=== PATIENT | female | born 1960 | race African-American/Black ===

== ENCOUNTER 2018-12-20 16:36 | Inpatient (IN) | payer OTHER ==
[~2018-12-20] VITALS: Ht 172.7 cm; Wt 82.1 kg
[2018-12-20 16:36] VITALS: BP 139/87
[2018-12-20] MEDS ORDERED: ACCUNEB SO1.25 MG/1 INH (16:41)
[2018-12-20 17:01] LABS: HEMATOCRIT 40.8 % (37.0-47.0); HEMOGLOBIN 13.5 gm/dL (12.0-15.0); MCH 28.4 pg (26.0-34.0); MCHC 33.2 g/dL (28.0-37.0); MCV 85.8 fL (80.0-100.0); PLATELET COUNT 262 thou/uL (150-400); RBC 4.76 mil/uL (4.20-5.00); RDW 13.7 % (10.5-14.5); WBC 12.5 thou/uL (4.0-11.0)
[2018-12-20 17:32] LABS: CALCIUM 8.5 mg/dL (8.5-10.1); CREATININE 0.6 mg/dL (0.6-1.0); POTASSIUM 3.5 mmol/L (3.5-5.1)
[2018-12-20 17:33] LABS: ABSOLUTE NEUTROPHILS 8.6 thou/uL (1.4-8.2)
[2018-12-20 17:36] LABS: ALBUMIN 4.1 g/dL (3.4-5.0); TOTAL BILIRUBIN 0.5 mg/dL (<0.1-1.0); TOTAL PROTEIN 7.8 g/dL (6.4-8.2)
[2018-12-20 18:36] VITALS: BP 150/74
[2018-12-20 18:44] VITALS: BP 150/74
[2018-12-20 19:32] VITALS: BP 159/89
[2018-12-20] MEDS ORDERED: NORVASC5 MG PO (19:55)
[2018-12-20] MEDS ORDERED: MOBIC15 MG PO (19:56)
[2018-12-20] MEDS ORDERED: ZOLOFT50 MG PO (19:57)
[2018-12-20] MEDS ORDERED: OMEPRAZOLE40 MG PO (19:57)
[2018-12-20] MEDS ORDERED: ZOCOR20 MG PO (19:58)
[2018-12-20] MEDS ORDERED: PROAIR HFA8.5 GM (19:59)
[2018-12-20] MEDS ORDERED: KLOR-CON 1010 MEQ PO (19:59)
[2018-12-21] VITALS (7 sets, daily range): BP systolic 148–174; BP diastolic 67–94
--- NOTE | 2018-12-21 08:05 | NUR ---
LOTTIE WAS ADMITTED WITH SOB, RESP FAILURE W/HYPOXIA, AND ASHTMA. BREATHEING TREATMENT AND STEROIDS EASED PT'S BREATHING AND PT IS STABLE ON RA UPON ASSESSMENT. PATIENT IS ALERT AND ORIENTED X4 AND WAS ORIENTED TO THE ROOM. THE NIGHT PROGRESSED, PT'S COUGHING EFFORT IMPROVED. SHE WAS ABLE TO SLEEP PART OF THE NIGHT. PATIENT'S GAIT WAS STEADY GOING TO THE BATHROOM. PATIENT IS PROGRESSING TOWARDS DISCHARGE GOALS.
--- NOTE | 2018-12-21 10:20 | NUR ---
kameron consulted for dcp for limited support system. kameron visited with pt at bedside. she is a & o x 3, and able to make her needs know. intro to cm, and dcp " i was homeless year ago from looses my job i lost everything. work 1/2 and no benifits. have medicaid. going to get knee replacements. use cane. live in ground floor apartment in [facility] and they help with my medication. i have car but need transportation home, that's ok. all family is out of state. no support here. have aunt but her health is not good and i do not want to bother her. use [facility] [address] in [facility] for medication. only use inhaler at home."/kadie. encouraged pt to call on friends or outside support if needed " ok thank you"/zackary. will cont following as needed for dc needs. dcp home
--- NOTE | 2018-12-21 15:03 | NUR ---
ASSUMED PATIENT CARE AT 0715. COMPLAINTS OF KNEE PAIN. NORCO FOR PAIN. PATIENT STAND BY ASSIST AND STEADY. SOA WITH AMBULATION. NONPRODUCTIVE COUGH. NEEDING A SPUTUM SAMPLE. TELE AND FLUIDS DC'D. TRANSFERRING DOWN TO [facility]. PATIENT AGREEABLE. REPORT GIVEN TO ALLIE.
--- NOTE | 2018-12-21 16:48 | NUR ---
CM CALLED AND GOT MEDICAID PRE AUTH FOR A NEBULIZER. CM FAXED ORDER TO [facility]. CM NOTIFIED [facility] LIAISON ON ORDER AND PROBABLE DC TOMORROW.
--- NOTE | 2018-12-21 18:43 | NUR ---
PATIENT TRANSFERRED FROM 451 TO SICU 224 AT 1730, A&OX4, DENIES PAIN AND DISCOMFORT, RA, RIGHT FOREARM IV INTACT, STANDBY ASSIST WITH TRANSFERS AND AMBULATION, PERSONAL BELONGINGS AND CALL LIGHT IN REACH, WILL CONTINUE TO MONITOR
--- NOTE | 2018-12-22 04:39 | NUR ---
Asumed Pt. care at 1900. Pt. A&Ox4; swallows meds whole w/o difficulty. Remains cont. B&B; ambulates independently w/ steady gait. remains on lovenox therapy; no s/s of bleeding noted. Remains on IVABT/cough; no adverse reactions noted. L wrist SL noted; infused ABT/flushed w/o difficulty. SCDs intact to BLEs. Pt. has no c/o pain or discomfort. No s/s of acute distress noted. Pt. asleep in bed w/ call light/desired belongings within reach. PO fluids encouraged. Will continue to monitor.
[2018-12-22 07:17] LABS: HEMOGLOBIN 12.9 gm/dL (12.0-15.0); MCH 28.6 pg (26.0-34.0); MCV 86.7 fL (80.0-100.0); RBC 4.5 mil/uL (4.20-5.00); RDW 14.2 % (10.5-14.5); WBC 17.3 thou/uL (4.0-11.0)
--- NOTE | 2018-12-22 07:43 | NUR ---
ASSUMED PATIENT AND CARES AT 0715, PATIENT WOKE LYING BACK IN BED, TALKATIVE, A&OX4, NON-PRODUCTIVE COUGH NOTED, C/O PAIN 5/10 TO KNEES, RIGHT FOREARM SALINE LOCK INTACT, CONTINUES IV ABT THERAPY, REPORTED INDEPENDENT WITH TRANSFER AND AMBULATION SINCE LAST NIGHT, PERSONAL BELONGINGS AND CALL LIGHT IN REACH, WILL CONTINUE TO MONITOR
[2018-12-22 09:25] VITALS: BP 144/81
[2018-12-22] MEDS ORDERED: TUSSIONEX PENN115 ML PO (10:54)
[2018-12-22] MEDS ORDERED: PREDNISONE 10 M10 MG PO (10:54)
[2018-12-22] MEDS ORDERED: AZITHROMYCIN 2250 MG PO (10:54)
[2018-12-22 14:10] VITALS: BP 144/81
--- NOTE | 2018-12-22 14:12 | NUR ---
DISCHARGE NOTE: SUSAN reviewed chart and spoke with nursing and attending physician. Pt transferred to [facility] from 4th floor and is medically stable for discharge home today. SUSAN notified [facility] liaison of pt's discharge. Nebulizer will be delivered to pt's home. SUSAN met with pt at bedside to discuss discharge plan. Pt is agreeable with plan, who states that she will need transportation home. Pt has [place]-Medicaid and will be able to use [employer] for transportation home. Contact info for [facility] placed in pt's discharge summary. No additional SW needs identified at this time, but is available to assist should needs arise.
--- NOTE | 2018-12-22 14:28 | NUR ---
DISCHARGE ORDERS RECEIVED. PATIENT DISCHARGING TO HOME. [facility] TO PROVIDE TRANSPORTATION. PER DISPATCH [facility] HAS A THREE HOUR WINDOW [phone] [employer] SUPER[employer] TIME. TRIP NUMBER [id number]. [facility] CONTACT NUMBER . UNIT SW AWARE.
[2018-12-22] MEDS ORDERED: IPRAT-ALBUT 0.5-3 ML INH (14:51)
--- NOTE | 2018-12-22 16:07 | NUR ---
PATIENT DISCHARGED HOME TO SELF CARE, PATIENT DRESSED SELF AND PACKED PERSONAL BELONGINGS, NURSE AND PATIENT DISCUSSED DISCHARGE INSTRUCTIONS AND MEDICATIONS, RIGHT FOREARM SALINE LOCK REMOVED AND REPLACED WITH GAUZE AND TAPE, TRANSPORTATION SET UP PER CASE MANAGEMENT
--- NOTE | 2018-12-22 18:02 | NUR ---
I AGREE WITH NURSING ASSESSMENT DONE BY ADILENE/RIMA.
== END 2018-12-22 18:05 | disposition home or self-care (01) | DRG 189 ==
LOC: ER 16:36 → SICU 18:14 → 4W 18:14 → EROBS 18:14 → 4W 19:00 → SICU 12-21 16:04
PROVIDERS: Physician Assistant; ADMIT Hospitalist
DX: J96.21 Acute and chronic respiratory failure with hypoxia (principal); J45.901 Unspecified asthma with (acute) exacerbation; I10 Essential (primary) hypertension; K21.9 Gastro-esophageal reflux disease without esophagitis; M17.0 Bilateral primary osteoarthritis of knee; F17.210 Nicotine dependence, cigarettes, uncomplicated; Z82.49 Family history of ischemic heart disease and other diseases of the circulatory system; Z71.6 Tobacco abuse counseling; Z79.899 Other long term (current) drug therapy
CPT/HCPCS: 10045; 15002

== ENCOUNTER 2019-06-18 11:09 | Emergency (ER) | payer OTHER ==
[~2019-06-18] VITALS: Ht 172.7 cm; Wt 89.8 kg
[~2019-06-18 11:09] MED LIST: ACCUNEB SO1.25 MG/1 INH; AZITHROMYCIN 2250 MG PO; IPRAT-ALBUT 0.5-3 ML INH; KLOR-CON 1010 MEQ PO; MOBIC15 MG PO; NORVASC5 MG PO; OMEPRAZOLE40 MG PO; PREDNISONE 10 M10 MG PO; PROAIR HFA8.5 GM; TUSSIONEX PENN115 ML PO; ZOCOR20 MG PO; ZOLOFT50 MG PO
[2019-06-18] MEDS ORDERED: SINGULAIR 10 MG10 M1 PO (11:21)
[2019-06-18 11:56] LABS: BASOPHILS 0.7 % (0.0-2.0); EOSINOPHILS 0.6 % (0.0-3.0); HEMATOCRIT 41.5 % (37.0-47.0); HEMOGLOBIN 13.5 gm/dL (12.0-15.0); LYMPHOCYTES 26.3 % (24.0-44.0); MCH 27.9 pg (26.0-34.0); MCHC 32.5 g/dL (28.0-37.0); MCV 85.9 fL (80.0-100.0); MONOCYTES 7.7 % (1.0-8.0); PLATELET COUNT 270 thou/uL (150-400); POLYS 64.7 % (36.0-66.0); RBC 4.83 mil/uL (4.20-5.00); RDW 15.1 % (10.5-14.5); WBC 7.8 thou/uL (4.0-11.0)
[2019-06-18 11:59] LABS: ANION GAP 15 mmol/L (7-16); BUN 14 mg/dL (7-18); CALCIUM 8.4 mg/dL (8.5-10.1); CHLORIDE 103 mmol/L (98-107); CO2 23 mmol/L (21-32); CREATININE 0.6 mg/dL (0.6-1.0); GLUCOSE 101 mg/dL (74-106); POTASSIUM 3.2 mmol/L (3.5-5.1); SODIUM 141 mmol/L (136-145)
[2019-06-18 12:07] LABS: TROPONIN-I <0.06 ng/mL (<0.06)
[2019-06-18 13:00] VITALS: BP 163/96
[2019-06-18] MEDS ORDERED: PREDNISONE 20 M20 MG PO (13:01)
--- NOTE | 2019-06-19 14:06 | EKG ---
[address] [place] [address] ELECTROCARDIOGRAM REPORT Name: ARELI KELLEY [facility] [id number] Admission: 06/18/19 Attend Phys: Discharge: 06/18/19 Date of : 60 Report #: [id number] THIS REPORT FOR: //name// [facility] ED Test Date: 2019-06-18 Test Time: 11:17:06 Pat Name: ARELI KELLEY Department: Room: Gender: F Resource Development Director: CARMELLA : 1960 Requested By: Lazaro Georges Order Number: [id number] MD: Jose G Churchill Measurements Intervals [place] Rate: 98 P: 51 [place]: 146 QRS: -46 QRSD: 106 T: 34 QT: 361 QTc: 461 Interpretive Statements Sinus rhythm Left axis deviation Low voltage, precordial leads RSR' in V1 or V2, probably normal variant Borderline T abnormalities, anterior leads No previous ECG available for comparison Electronically Signed On 06-19-2019 14:06:10 CDT by Jose G Churchill [email or web address] <ELECTRONICALLY SIGNED> By: Jose G Churchill MD 06/19/19 1402 1117 1117 Jose G Churchill MD /EPI
== END 2019-06-18 13:00 | disposition home or self-care (01) ==
LOC: ER 11:09
PROVIDERS: Emergency Medicine
DX: J06.9 Acute upper respiratory infection, unspecified (principal); F17.210 Nicotine dependence, cigarettes, uncomplicated; I10 Essential (primary) hypertension; J45.909 Unspecified asthma, uncomplicated; E78.00 Pure hypercholesterolemia, unspecified; K21.9 Gastro-esophageal reflux disease without esophagitis; F41.9 Anxiety disorder, unspecified

== ENCOUNTER 2020-03-20 17:32 | Emergency (ER) | payer OTHER ==
[~2020-03-20] VITALS: Ht 172.7 cm; Wt 83.9 kg
--- NOTE | ~2020-03-20 | EMS ---
[facility] [address] [place] [address] EMS Patient Care Report Name: ARELI EKLLEY Room #: REG VASILIY Hannah#: [id number] Admission: 03/20/20 Attend Phys: Discharge: Date of : 60 Report #: [id number] THIS REPORT FOR: //name// Report Transmitted: 03/20/2020 18:53 EMS Care Summary [place], [place]/[facility] Incident [id number] @ 03/20/2020 17:02 Incident Location [address] [place] [id number] Patient ARELI KELLEY Female, 59 Years 1960 Patient Address [address] [place] [address] Patient History Asthma,Hypertension (HTN), Patient Allergies No known allergies, Patient Medications Proair, Chief Complaint asthma exacerbation Disposition Transported No Lights/[place] Dispatch Reason Breathing Problem Transported To [facility] Narrative Initially dispatched with [facility] for breathing problems. Upon EMS arrival patient was found sitting in her car, anxious, coughing, CAOx4. Patient stated that she has Asthma. She stated that she could feel herself begin to wheeze as [facility] [address] [place] [address] EMS Patient Care Report Name: ARELI KELLEY Room #: REG VASILIY Hannah#: [id number] Admission: 03/20/20 Attend Phys: Discharge: Date of : 60 Report #: [id number] she was leaving work, then when she got outside to the hot air she began having severe difficulty breathing. Patient reports taking a couple "puffs" off of her inhaler with no relief. Patient was assisted out of her car, onto the stretcher, and loaded into the ambulance. Auscultation of the lungs found slight wheezing in the upper lobes. A DuoNeb treatment was initiated. Patient initially stated that she wanted to see if the nebulized treatment helped before going to the hospital. About intermediate into the breathing treatment the patient reported feeling some relief but she wished to be transported to the hospital. She was transported to [facility] without incident. Full report was given to RN prior to signing this document. Initial Vitals @17:26P: 104,BP: 160/94,SpO2: 100, @17:09P: 98,R: 24,BP: 170/102,Pain: 0/10,GCS: 15,SpO2: 100,Revised Trauma: 12, Assessments @17:06MENTAL:No Abnormalities,SKIN:No Abnormalities,HEENT:Head/Face: No Abnormalities,Eyes: No Abnormalities,Neck/Airway: No Abnormalities,LUNG SOUNDS:ABDOMEN:PELVIS//GI:EXTREMITIES:Left Arm: No Abnormalities,Right Arm: No Abnormalities,Left Leg: No Abnormalities,Right Leg: No Abnormalities,PULSE:NEURO:No Abnormalities, Impression Asthma Procedures @17:05ALS AssessmentResponse: UnchangedSucceeded@17:10Albuterol - 5 Milligrams (mg) - NebulizedResponse: Improved@17:10Atrovent - 0.5 Milligrams (mg) - NebulizedResponse: Improved@17:25Saline Lock 10cc (20 ga) Site: Forearm-LeftResponse: UnchangedSucceeded Timeline 17:00,Call Received 17:00,Dispatch Notified 17:02,Dispatched 17:02,En Route 17:05,On Scene 17:05,At Patient 17:05,ALS Assessment,Response: UnchangedSucceeded, 17:09,BP: 170/102 M,PULSE: 98,RR: 24 R,SPO2: 100 Ox,ETCO2: ,BG: ,PAIN: 0,GCS: 15, 17:10,Albuterol - 5 Milligrams (mg) - Nebulized,Response: Improved 17:10,Atrovent - 0.5 Milligrams (mg) - Nebulized,Response: Improved 17:21,Depart Scene 17:25,Saline Lock 10cc 20 ga Site: Forearm-Left,Response: UnchangedSucceeded, 17:26,BP: 160/94 M,PULSE: 104,RR: R,SPO2: 100 Ox,ETCO2: ,BG: ,PAIN: ,GCS: , [facility] [address] [place] [address] EMS Patient Care Report Name: ARELI KELLEY Room #: REG VASILIY Hannah#: [id number] Admission: 03/20/20 Attend Phys: Discharge: Date of : 60 Report #: [id number] 17:26,At Destination 17:37,Call Closed Disclaimer v1.1 Copyright 2020 [employer] This EMS Care Summary contains data elements from the applicable legal record (which may be displayed differently). It is designed to provide pertinent information for the following purposes: continuity of care, clinical quality, and state data reporting. The complete legal record is available to ED staff and administrators of the receiving hospital in [employer]'s Patient Tracker. All data is provided "as is."
[~2020-03-20 17:32] MED LIST changes: +PREDNISONE 20 M20 MG PO; +SINGULAIR 10 MG10 M1 PO
[2020-03-20 18:41] LABS: ABSOLUTE NEUTROPHILS 4.3 thou/uL (1.4-8.2); BASOPHILS 0.6 % (0.0-2.0); EOSINOPHILS 0.4 % (0.0-3.0); HEMATOCRIT 41.5 % (37.0-47.0); HEMOGLOBIN 13.7 gm/dL (12.0-15.0); LYMPHOCYTES 20.2 % (24.0-44.0); MCH 28.6 pg (26.0-34.0); MCV 86.8 fL (80.0-100.0); MONOCYTES 7.2 % (1.0-8.0); PLATELET COUNT 239 thou/uL (150-400); POLYS 71.6 % (36.0-66.0); RBC 4.78 mil/uL (4.20-5.00); RDW 15.1 % (10.5-14.5)
[2020-03-20] MEDS ORDERED: ROSUVASTATIN CA10 MG PO (18:47)
[2020-03-20] MEDS ORDERED: PAXIL20 MG PO (18:47)
[2020-03-20] MEDS ORDERED: ASA81BEC PO (18:49)
[2020-03-20 18:53] LABS: ANION GAP 10 mmol/L (7-16); BUN 14 mg/dL (7-18); CALCIUM 7.7 mg/dL (8.5-10.1); CHLORIDE 104 mmol/L (98-107); CO2 23 mmol/L (21-32); CREATININE 0.6 mg/dL (0.6-1.0); GLUCOSE 103 mg/dL (74-106); SODIUM 137 mmol/L (136-145)
[2020-03-20 19:02] LABS: TROPONIN-I <0.06 ng/mL (<0.06)
[2020-03-20 19:16] LABS: MAGNESIUM 1.3 mg/dL (1.8-2.4); PHOSPHORUS 3.7 mg/dL (2.5-4.9)
[2020-03-20] MEDS ORDERED: MAG-OXIDE400 MG PO (19:36)
[2020-03-20] MEDS ORDERED: ATIVAN0.5 M1 PO (19:59)
[2020-03-20 22:02] VITALS: BP 165/98
--- NOTE | 2020-03-24 07:27 | EKG ---
[facility] [place] [address] ELECTROCARDIOGRAM REPORT Name: ARELI KELLEY Room #: DEP [facility]#: [id number] Admission: 03/20/20 Attend Phys: Discharge: 03/20/20 Date of : 60 Report #: [id number] THIS REPORT FOR: cc: [place] - No family physician/PCP FAM - No family physician/PCP Paulino Mohan MD [facility] THIS REPORT FOR: //name// [facility] ED Test Date: 2020-03-20 Test Time: 18:18:26 Pat Name: ARELI KELELY Department: Room: Gender: F Benefits Consulting Analyst: : 1960 Requested By: Leonard West Order Number: [id number] MD: Paulino Mohan Measurements Intervals [place] Rate: 89 P: 42 [place]: 156 QRS: -22 QRSD: 88 T: 26 QT: 385 QTc: 469 Interpretive Statements Sinus rhythm Inferior infarct, old Compared to ECG 06/18/2019 11:17:06 No significant change was found Electronically Signed On 03-24-2020 7:27:25 CDT by Paulino Mohan [email or web address] <ELECTRONICALLY SIGNED> By: Paulino Mohan MD, FACC 03/24/20 0727 1818 1818 Paulino Mohan MD, [facility] /EPI
== END 2020-03-20 22:03 | disposition home or self-care (01) ==
LOC: ER 17:32
PROVIDERS: Emergency Medicine
DX: J45.909 Unspecified asthma, uncomplicated (principal); E83.51 Hypocalcemia; E87.6 Hypokalemia; R06.02 Shortness of breath; R19.7 Diarrhea, unspecified; R05 Cough; F41.0 Panic disorder [episodic paroxysmal anxiety]; E78.00 Pure hypercholesterolemia, unspecified; K21.9 Gastro-esophageal reflux disease without esophagitis; I10 Essential (primary) hypertension; M17.0 Bilateral primary osteoarthritis of knee; F17.210 Nicotine dependence, cigarettes, uncomplicated; Z86.73 Personal history of transient ischemic attack (TIA), and cerebral infarction without residual deficits; Z98.890 Other specified postprocedural states; Z79.899 Other long term (current) drug therapy; Z79.82 Long term (current) use of aspirin

== ENCOUNTER 2020-03-31 11:13 | Emergency (ER) | payer OTHER ==
[~2020-03-31] VITALS: Ht 172.7 cm; Wt 83.9 kg
[~2020-03-31 11:13] MED LIST changes: +ASA81BEC PO; +ATIVAN0.5 M1 PO; +MAG-OXIDE400 MG PO; +PAXIL20 MG PO; +ROSUVASTATIN CA10 MG PO
[2020-03-31] MEDS ORDERED: LIDOCAINE1 EACH TRANSDERM (12:14)
[2020-03-31] MEDS ORDERED: NORCO 5-325 TA1 EAC2 PO (12:14)
[2020-03-31 12:26] VITALS: BP 171/78
== END 2020-03-31 12:26 | disposition home or self-care (01) ==
LOC: ER 11:13
DX: S20.211A Contusion of right front wall of thorax, initial encounter (principal); J45.909 Unspecified asthma, uncomplicated; I10 Essential (primary) hypertension; K21.9 Gastro-esophageal reflux disease without esophagitis; M17.0 Bilateral primary osteoarthritis of knee; E78.00 Pure hypercholesterolemia, unspecified; F17.210 Nicotine dependence, cigarettes, uncomplicated; Z98.890 Other specified postprocedural states; Z79.899 Other long term (current) drug therapy; Z79.82 Long term (current) use of aspirin; W01.198A Fall on same level from slipping, tripping and stumbling with subsequent striking against other object, initial encounter; Y93.89 Activity, other specified; Y92.89 Other specified places as the place of occurrence of the external cause; Y99.8 Other external cause status

== ENCOUNTER 2020-05-17 10:19 | Emergency (ER) | payer OTHER ==
[~2020-05-17] VITALS: Ht 172.7 cm; Wt 81.2 kg
[~2020-05-17 10:19] MED LIST changes: +LIDOCAINE1 EACH TRANSDERM; +NORCO 5-325 TA1 EAC2 PO
[2020-05-17] MEDS ORDERED: AUGMENTIN 875-1 EACH PO (11:20)
[2020-05-17] MEDS ORDERED: TRAMADOL 50 MG50 MG PO (11:54)
[2020-05-17 12:05] VITALS: BP 137/86
== END 2020-05-17 12:05 | disposition home or self-care (01) ==
LOC: ER 10:19
DX: L03.031 Cellulitis of right toe (principal); I10 Essential (primary) hypertension; E78.00 Pure hypercholesterolemia, unspecified; K21.9 Gastro-esophageal reflux disease without esophagitis; J45.909 Unspecified asthma, uncomplicated; M19.90 Unspecified osteoarthritis, unspecified site; F41.9 Anxiety disorder, unspecified; F17.210 Nicotine dependence, cigarettes, uncomplicated

== ENCOUNTER → 2020-09-16 | Outpatient (CLI) | payer OTHER ==
[~2020-09-16] MED LIST changes: +AUGMENTIN 875-1 EACH PO; +TRAMADOL 50 MG50 MG PO
== END ==
LOC: BC 09:17
DX: Z12.31 Encounter for screening mammogram for malignant neoplasm of breast (principal)

== ENCOUNTER 2021-02-04 11:39 | Emergency (ER) | payer OTHER ==
[~2021-02-04] VITALS: Ht 172.7 cm; Wt 77.1 kg
[2021-02-04] MEDS ORDERED: ATORVASTATIN CA80 MG PO (11:57)
[2021-02-04 12:58] VITALS: BP 150/82
== END 2021-02-04 12:58 | disposition home or self-care (01) ==
LOC: ER 11:39
DX: R21 Rash and other nonspecific skin eruption (principal); J45.909 Unspecified asthma, uncomplicated; I10 Essential (primary) hypertension; K21.9 Gastro-esophageal reflux disease without esophagitis; F17.210 Nicotine dependence, cigarettes, uncomplicated; Z79.82 Long term (current) use of aspirin; Z79.899 Other long term (current) drug therapy; Z98.890 Other specified postprocedural states